=== PATIENT | male | born 2000 | race Caucasian/White ===

== ENCOUNTER 2020-01-08 21:47 | Emergency (ER) | payer OTHER ==
[~2020-01-08] VITALS: Ht 175.3 cm; Wt 68.0 kg
[2020-01-08 22:07] VITALS: BP 141/85
[2020-01-08] MEDS ORDERED: KETOROLAC TROMETHAMINE INJ 60 MG/2 ML VIAL IM ONE ×2 (22:43→23:00)
== END 2020-01-08 23:12 | disposition home or self-care (01) ==
LOC: ER 21:52
DX: J02.9 Acute pharyngitis, unspecified (principal)
CPT/HCPCS: 96372; 99283; J1885

== ENCOUNTER 2020-05-12 19:32 | Emergency (ER) | payer OTHER ==
[~2020-05-12] VITALS: Ht 177.8 cm; Wt 68.0 kg
--- NOTE | 2020-05-12 19:45 | NUR ---
PT CAME TO THE ED C/O LOWER ABD PAIN, NAUSEA AND FEVER X 1 DAY, SEEN BY HIS PCP AND WAS DIAGNOSED W/ UTI, PT ON MACROBID. PT ENDORSES BURNING SENSATION UPON URINATION. VSS. NO ACUTE DISTRESS NOTED. AWAITING FOR MD GONZALEZ
[2020-05-12] MEDS ORDERED: KETOROLAC TROMETHAMINE INJ 30 MG/ML VIAL IV ONE (20:00)
[2020-05-12] MEDS ORDERED: CEFTRIAXONE 1GM BAG (ER ONLY) 50 ML IV ONE ×2 (20:00→20:01)
[2020-05-12] MEDS ORDERED: ACETAMINOPHEN ES 500 MG TABLET PO ONE (20:00)
[2020-05-12] MEDS ORDERED: IV NS 0.9% 1,000 ML BAG IV ONE (20:00)
[2020-05-12] MEDS ORDERED: ACETAMINOPHEN ES 500 MG TABLET ONE (20:01)
[2020-05-12] MEDS ORDERED: KETOROLAC TROMETHAMINE INJ 30 MG/ML VIAL ONE (20:01)
--- NOTE | 2020-05-12 20:09 | NUR ---
ULTRASOUND AT BEDSIDE IN PROGRESS
[2020-05-12 20:18] LABS: APPEARANCE,URINE Clear (CLEAR); BILIRUBIN,URINE SMALL (NEGATIVE); BLOOD, URINE Trace-lysed Ery/uL (NEGATIVE); COLOR,URINE Yellow (YELLOW); KETONES,URINE 40 (NEGATIVE); LEUKOCYTE ESTERASE ,URINE Negative (NEGATIVE); NITRITE, URINE Negative (NEGATIVE); PROTEIN,URINE 30 mg/dl (NEGATIVE); UGLUCOSE Negative (NEGATIVE); UROBILINOGEN,URINE 0.2 EU/dL (0.2)
[2020-05-12 20:20] LABS: BACTERIA,URINE None seen /HPF (None Seen); SQUAMOUS EPITHELIAL CELL,UR Few /HPF (None Seen); WBC,URINE 0-2 /HPF (0-3)
[2020-05-12 20:22] LABS: BASOPHILS % (AUTO) 0.3 % (0.0-2.0); HEMATOCRIT 46 % (39-51); HEMOGLOBIN 15.5 g/dL (13.5-17.5); LYMPHOCYTES # (AUTO) 1.2 /CMM (0.8-4.8); LYMPHOCYTES % (AUTO) 19.6 % (20.0-44.0); MEAN CORPUSCULAR HGB CONC 34 g/dl (31.0-36.0); MEAN CORPUSCULAR VOLUME 92 fL (80-96); MONOCYTES # (AUTO) 0.7 /CMM (0.1-1.30); MONOCYTES % (AUTO) 11.3 % (2.0-12.0); NEUTROPHILS # (AUTO) 4.1 /CMM (1.8-8.9); NEUTROPHILS % (AUTO) 68.8 % (43.0-81.0); PLATELET COUNT (AUTO) 119 /CMM (150-450); RED BLOOD CELL COUNT(AUTO) 5.04 MIL/uL (4.5-6.0); WHITE BLOOD COUNT (AUTO) 5.9 K/uL (4.3-11.0)
--- NOTE | 2020-05-12 20:40 | NUR ---
PT TAKEN TO CT
[2020-05-12 20:52] LABS: CREATININE 1.1 mg/dL (0.6-1.3); POTASSIUM 3.4 mmol/L (3.5-5.1)
[2020-05-12 20:58] LABS: ALBUMIN 4.2 g/dL (3.4-5.0); BILIRUBIN,DIRECT 0.1 mg/dL (0.0-0.2); BILIRUBIN,TOTAL 0.5 mg/dL (0.2-1.0); TOTAL PROTEIN, SERUM 8.9 g/dL (6.4-8.2)
--- NOTE | 2020-05-12 21:28 | NUR ---
Patient discharged to home in stable condition. Written and verbal after care instructions given. Patient verbalizes understanding of instruction.
[2020-05-12 21:29] VITALS: BP 112/74
== END 2020-05-12 21:29 | disposition home or self-care (01) ==
LOC: ER 19:35
DX: N45.1 Epididymitis (principal); I86.1 Scrotal varices; Z87.440 Personal history of urinary (tract) infections
CPT/HCPCS: 36415; 74176; 76870; 80048; 80076; 81001; 83690; 85025; 87086; 96365; 96366; 96375; 99285; J0696; J1885; J7030; 81000-TC

== ENCOUNTER 2023-01-03 09:15 | Emergency (ER) | payer SELFPAY ==
[~2023-01-03] VITALS: Ht 180.3 cm; Wt 72.6 kg
--- NOTE | 2023-01-03 09:25 | NUR ---
RECEIVED PT FROM HOME WALING IN WITH MOTHER LACERATION ON LT PINKY FINGER OPEN AND DEEP WOUND SKIN TEAR
--- NOTE | 2023-01-03 09:45 | NUR ---
NAJMA STRIP AND BINZED APPED BY DR. TATE
[2023-01-03] MEDS ORDERED: BENZOIN COMPOUND TINCT 60 ML BOTTLE ONE (09:54)
--- NOTE | 2023-01-03 09:55 | NUR ---
DR. SPEAR AT BED SIDE CLARI TYSON
--- NOTE | 2023-01-03 10:00 | NUR ---
DRESSING APPLED WITH FINGER SPLENT
[2023-01-03] MEDS ORDERED: TDAP [DIPH/PERTUSSIS/TET] 0.5 ML VIAL IM ONE ×2 (10:12→10:30)
[2023-01-03] MEDS ORDERED: IBUP-1955 PO (10:19)
[2023-01-03] MEDS ORDERED: BACI/NEOM/POLY B OINT PKT 1 UDPKT PACKET TP ONE (10:30)
--- NOTE | 2023-01-03 10:30 | NUR ---
Patient discharged to home in stable condition. Written and verbal after care instructions given. Patient verbalizes understanding of instruction.
[2023-01-03 10:38] VITALS: BP 130/78
== END 2023-01-03 10:38 | disposition home or self-care (01) ==
LOC: ER 09:17
DX: S61.317A Laceration without foreign body of left little finger with damage to nail, initial encounter (principal); W26.0XXA Contact with knife, initial encounter; Y93.89 Activity, other specified; Y92.89 Other specified places as the place of occurrence of the external cause; Y99.8 Other external cause status
CPT/HCPCS: 99283; 90471; 90715; A6403

== ENCOUNTER 2024-11-04 07:13 | Emergency (ER) | payer MEDICAID ==
[~2024-11-04] VITALS: Ht 170.2 cm; Wt 70.3 kg
[~2024-11-04 07:13] MED LIST: IBUP-1955 PO
[2024-11-04 07:41] VITALS: BP 118/79; TEMP 98.1; O2SAT 100
== END 2024-11-04 11:52 | disposition home or self-care (01) ==
LOC: ER 07:13
DX: K56.609 Unspecified intestinal obstruction, unspecified as to partial versus complete obstruction (principal); Z53.21 Procedure and treatment not carried out due to patient leaving prior to being seen by health care provider